=== PATIENT | female | born 1975 | race Caucasian/White ===

== ENCOUNTER 2016-09-08 13:18 | Emergency (ER) | payer OTHER ==
[2016-09-08 13:36] VITALS: BP 136/79; PULSE 63; TEMP 98.4; BMI 26.4
[2016-09-08] MEDS ORDERED: ONDANSETRON *ODT* 4 MG TABLET ONE ×2 (14:28→14:59)
[2016-09-08] MEDS ORDERED: ACETAMINOPHEN 325 MG TABLET (FP) ONE ×2 (14:28→14:59)
--- NOTE | 2016-09-08 14:31 | PDOC ---
History of Present Illness - General Chief Complaint: Injury Stated Complaint: HEAD INJURY Time Seen by Provider: 09/08/16 13:51 History Source: Patient Exam Limitations: No Limitations - History of Present Illness Initial Comments: 09/08/16 14:51 She was attending son's baseball game yesterday when a foul ball flew over fence striking patient in the crown of her head. She denies LOC , but states felt mildly dizzy at time of injury. Used ice pack and Tylenol with some relief. States woke up this morning feeling very tired, nauseous, with some mild photophobia. Denies drainage from nose or ears, denies distracting injury, no emesis or neurologic change. 09/08/16 14:52 Occurred: reports: just prior to arrival Severity: reports: mild Pain Location: reports: head Method of Injury: Yes: direct blow (with baseball) Modifying Factors: improves with: None Loss of Consciousness: dazed Associated Symptoms (Fall): headache Past History - Travel Traveled outside of the country in the last 30 days: No Close contact w/someone who was outside of country & ill: No - Past Medical History Allergies/Adverse Reactions: Allergies Allergy/AdvReac Type Severity Reaction Status Date / Time No Known Allergies Allergy Verified 09/08/16 13:32 Home Medications: Ambulatory Orders Ondansetron [Zofran *Odt*] 4 mg SL PRN PRN #14 od.tablet 09/08/16 Anemia: Yes Other medical history: NEUROFIBROMYOTOSIS TYPE 1 - Surgical History Abdominal Surgery: Yes (TUBAL LIGATION) - Psycho/Social/Smoking Cessation Hx Anxiety: No Suicidal Ideation: No Smoking History: Never smoked Have you smoked in the past 12 months: No Information on smoking cessation initiated: No Hx Alcohol Use: No Drug/Substance Use Hx: No Substance Use Type: None Review of Systems - Review of Systems Able to Perform ROS?: Yes Is the patient limited [place] proficient: Yes Constitutional: Yes: Symptoms Reported, See HPI, Loss of Appetite HEENTM: Yes: Symptoms Reported, See HPI, Recent change in vision (mild photophobia). No: Blurred Vision, Tearing Respiratory: No: Symptoms reported Cardiac (ROS): No: Symptoms Reported ABD/GI: Yes: Symptoms Reported, See HPI, Nausea. No: Vomiting Musculoskeletal: Yes: See HPI. No: Symptoms Reported, Back Pain, Neck Pain Integumentary: No: Symptoms Reported Neurological: Yes: Symptoms reported, See HPI, Headache. No: Numbness, Paresthesia, Tingling, Tremors All Other Systems: Reviewed and Negative *Physical Exam - Vital Signs Last Vital Signs Temp Pulse Resp BP Pulse Ox 98.4 F 63 18 136/79 100 09/08/16 13:32 09/08/16 13:32 09/08/16 13:32 09/08/16 13:32 09/08/16 13:32 - Physical Exam General Appearance: Yes: Nourished, Appropriately Dressed, Apparent Distress, Mild Distress HEENT: positive: EDIE, Normal ENT Inspection, TMs Normal (no hemotymapanum), Other (no bruising, swelling, crepitus or other areas of injury at site patient notes as impact). negative: Nasal Congestion, Rhinorrhea Neck: positive: Supple. negative: Tender Respiratory/Chest: positive: Lungs Clear, Normal Breath Sounds Gastrointestinal/Abdominal: positive: Normal Bowel Sounds, Soft. negative: Tender Musculoskeletal: positive: Normal Inspection. negative: Muscle Spasm Extremity: positive: Normal Capillary Refill, Normal Inspection Integumentary: positive: Normal Color, Dry, Warm Neurologic: positive: machine specialist II-XII NML intact, Fully Oriented, Alert, Normal Mood/ Affect, Normal Response, Motor Strength 5/5 Progress Note - Progress Note Progress Note: Superficial head injury with mild postconcussive syndrome. We'll treat conservatively with Tylenol and provided Zofran *DC/Admit/Observation/Transfer Diagnosis at time of Disposition: Postconcussional syndrome Superficial injury of head Qualifiers: Encounter type: initial encounter Qualified Code(s): S00.90XA - Unspecified superficial injury of unspecified part of head, initial encounter - Discharge Dispostion Disposition: HOME Condition at time of disposition: Stable Admit: No - Patient Instructions Printed Discharge Instructions: DI for Closed Head Injury Additional Instructions: Rest, avoid strenuous activity or exercise for the next 24-48 hours May use ice on contusions as needed. May use Tylenol or Motrin for pain relief Watch and seek evaluation for changes in behavior including crankiness, inconsolability, quietness/ sleepiness that is inappropriate, tiredness that is inappropriate, watch for worsening and changes of behavior. Seek immediate evaluation/return to emergency department for vomiting, mental status changes, pain that's out of proportion , bloody drainage from ears or nose. Followup with private physician as needed in one to 2 days for reevaluation
[2016-09-08] MEDS ORDERED: ACETAMINOPHEN 500 MG TABLET (FP) PO ONE (14:56)
[2016-09-08] MEDS ORDERED: ONDANSETRON *ODT* 4 MG TABLET SL ONE (14:56)
== END 2016-09-08 15:02 | disposition home or self-care (01) ==
LOC: JERFT 13:18
DX: F07.81 Postconcussional syndrome (principal); W21.03XA Struck by baseball, initial encounter; Y93.82 Activity, spectator at an event; Y92.320 Baseball field as the place of occurrence of the external cause; Y99.8 Other external cause status
CPT/HCPCS: 84703; 99281-25

== ENCOUNTER 2022-10-12 21:30 | Emergency (ER) | payer OTHER ==
[2022-10-12 21:39] VITALS: BP 114/69; PULSE 67; RESP 18; TEMP 98; BMI 24.1
== END 2022-10-12 22:29 | disposition home or self-care (01) ==
LOC: JERFT 21:30
PROC: 0H9AX0Z Drainage of Inguinal Skin with Drainage Device, External Approach (ICD-10-PCS; principal; 2022-10-12)
DX: L02.31 Cutaneous abscess of buttock (principal)
CPT/HCPCS: 99283-25

== ENCOUNTER 2023-11-27 14:37 | Emergency (ER) | payer OTHER ==
[2023-11-27 14:45] VITALS: BP 110/71; PULSE 66; RESP 18; TEMP 98.3; BMI 24.1
== END 2023-11-27 15:56 | disposition home or self-care (01) ==
LOC: JER 14:37 → JERFT 14:37
PROC: 0H98XZZ Drainage of Buttock Skin, External Approach (ICD-10-PCS; principal; 2023-11-27)
DX: L02.31 Cutaneous abscess of buttock (principal)
CPT/HCPCS: 87070; 87205; 99283-25